=== PATIENT | male | born 1955 | race Caucasian/White ===

== ENCOUNTER 2020-10-02 08:00 | Outpatient (CLI) | payer MEDICAID ==
--- NOTE | 2020-10-02 09:52 | XRAY Report ---
PROCEDURE: Hips 3-4V BILAT INDICATIONS: BILATERAL HIP ARTHRITIS TECHNIQUE: AP pelvis and one view of each hip was obtained. COMPARISON: None FINDINGS: Bones: No fractures or dislocations. No suspicious bony lesions. The visualized pelvic ring appear s intact. Mild bilateral hip joint space narrowing and periarticular osteophyte formation. Right gre ater than left femoral head/neck junction buttressing. Soft tissues: No suspicious soft tissue calcifications or masses. IMPRESSION: 1. Bilateral hip osteoarthritis. 2. Findings suggestive of femoral acetabular impingement. Further assessment with MRI is recommended. Reviewed by: Zackery Xiong MD on 10/02/2020 9:51 AM PDT Approved by: Zackery Xiong MD on 10/02/2020 9:51 AM PDT Station ID: [id number]
== END 2020-10-02 23:59 | disposition home or self-care (01) ==
LOC: DI.N 08:00
PROVIDERS: ATTEND Physician Assistant Medical
DX: M16.0 Bilateral primary osteoarthritis of hip (principal); R93.6 Abnormal findings on diagnostic imaging of limbs

== ENCOUNTER 2021-04-22 14:06 | Outpatient (CLI) | payer MEDICAID | END 2021-04-22 14:07 | disposition home or self-care (01) | LOC: DI.WOS 14:06 | PROVIDERS: ATTEND Physician Assistant | DX: M16.11 Unilateral primary osteoarthritis, right hip (principal) ==

== ENCOUNTER 2021-04-22 15:48 | Outpatient (CLI) | payer MEDICAID ==
--- NOTE | 2021-04-22 17:20 | XRAY Report ---
PROCEDURE: Hip w/Pelvis 1V RT INDICATIONS: RIGHT HIP PAIN TECHNIQUE: AP pelvis with lateral view(s) of the right hip(s). COMPARISON: None. FINDINGS: Bones: No fractures or dislocations. Asymmetric right hip joint osteoarthritic changes are seen with superior joint space narrowing and subchondral sclerosis. No evidence of avascular necrosis of femor al head. Pelvic ring appears intact. No suspicious bony lesions. Soft tissues: The visualized bowel gas pattern is normal. No suspicious soft tissue calcifications. IMPRESSION: Asymmetric moderate right hip joint osteophyte is. No fracture or dislocation. No evidenc e of avascular necrosis. Reviewed by: Juan José Tang MD on 04/22/2021 5:19 PM PST Approved by: Juan José Tang MD on 04/22/2021 5:19 PM PST Station ID: [id number]
== END 2021-04-22 15:49 | disposition home or self-care (01) ==
LOC: DI.N 15:48
PROVIDERS: ATTEND Physician Assistant
DX: M16.11 Unilateral primary osteoarthritis, right hip (principal)

== ENCOUNTER 2021-05-01 12:42 | Outpatient (CLI) | payer MEDICAID ==
[2021-05-01 17:13] LABS: BASOPHILS # (AUTO) 0.1 10^3/uL (0.0-0.1); BASOPHILS % (AUTO) 0.8 %; EOSINOPHILS # (AUTO) 0.4 10^3/uL (0.0-0.7); EOSINOPHILS % (AUTO) 7.1 %; HCT - HEMATOCRIT 45.8 % (42.0-52.0); HGB - HEMOGLOBIN 15.2 g/dL (14.0-18.0); LYMPHOCYTES # (AUTO) 1.1 10^3/uL (1.5-3.5); LYMPHOCYTES % (AUTO) 18.9 %; MEAN CORPUSCULAR HGB CONC 33.2 g/dL (32.0-36.0); MEAN CORPUSCULAR VOLUME 96.4 fL (80.0-94.0); MONOCYTES # (AUTO) 0.7 10^3/uL (0.0-1.0); MONOCYTES % (AUTO) 11.6 %; NEUTROPHILS # (AUTO) 3.7 10^3/uL (1.5-6.6); NEUTROPHILS % (AUTO) 61.1 %; RED BLOOD COUNT 4.75 10^6/uL (4.70-6.10); RED CELL DISTRIBUTION WIDTH 12.7 % (12.0-15.0)
[2021-05-01 17:25] LABS: ALBUMIN 3.8 g/dL (3.2-5.5); ALBUMIN/GLOBULIN RATIO 1.1 (1.0-2.2); ALKALINE PHOSPHATASE 76 IU/L (42-121); ALT ALANINE AMINOTRANSFERASE 29 IU/L (10-60); AST ASPARTATE AMINOTRANSFERASE 36 IU/L (10-42); BILIRUBIN,TOTAL 0.9 mg/dL (0.2-1.0); BUN - BLOOD UREA NITROGEN 11 mg/dL (6-20); CALCIUM 9.6 mg/dL (8.5-10.3); CARBON DIOXIDE - CO2 25 mmol/L (21-32); CHLORIDE 99 mmol/L (101-111); CHOLESTEROL 207 mg/dL; CREATININE 0.8 mg/dL (0.6-1.2); GFR - MDRD 98 (>89); GLUCOSE 90 mg/dL (70-100); HDL CHOLESTEROL 69 mg/dL; LDL CHOLESTEROL,CALCULATED 118 mg/dL; LDL/HDL RATIO 1.7 (<3.6); POTASSIUM 4.4 mmol/L (3.5-5.0); SODIUM 139 mmol/L (135-145); TOTAL PROTEIN 7.4 g/dL (6.7-8.2); TRIGLYCERIDES 102 mg/dL; VLDL CHOLESTEROL 20 mg/dL
[2021-05-01 17:38] LABS: THYROID STIMULATING HORMONE 1.57 uIU/mL (0.34-5.60)
[2021-05-01 17:54] LABS: PLATELET ESTIMATE, MANUAL NORMAL (130-450,000) (NORMAL); SLIDE REVIEW? Indicated
[2021-05-01 17:55] LABS: RBC MORPHOLOGY (MULTIPLE) NORMAL APPEARANCE (NORMAL)
[2021-05-03 18:01] LABS: HEPATITIS C ANTIBODY NON-REACTIVE (NON-REACTIVE)
== END 2021-05-01 12:43 | disposition home or self-care (01) ==
LOC: LAB.N 12:42
PROVIDERS: ATTEND Registered Nurse
DX: Z00.00 Encounter for general adult medical examination without abnormal findings (principal); Z13.228 Encounter for screening for other metabolic disorders; Z13.220 Encounter for screening for lipoid disorders; Z12.5 Encounter for screening for malignant neoplasm of prostate; Z13.29 Encounter for screening for other suspected endocrine disorder; Z13.0 Encounter for screening for diseases of the blood and blood-forming organs and certain disorders involving the immune mechanism; R97.20 Elevated prostate specific antigen [PSA]
CPT/HCPCS: 36415; 80053; 80061; 83721; 84153; 84443; 85025; 86803; 87389

== ENCOUNTER 2021-05-03 10:41 | Outpatient (CLI) | payer MEDICAID ==
[2021-05-03 18:28] LABS: PSA FREE 1.156 ng/mL (0.16-2.81)
[2021-05-03 18:29] LABS: PSA TOTAL 9.916 ng/mL (0.000-2.000)
[2021-05-04 14:32] LABS: HIV AG/AB 4TH GEN NON-REACTIVE (NON-REACTIVE)
== END 2021-05-03 10:42 | disposition home or self-care (01) ==
LOC: LAB.N 10:41
PROVIDERS: ATTEND Registered Nurse
DX: Z00.00 Encounter for general adult medical examination without abnormal findings (principal); R97.20 Elevated prostate specific antigen [PSA]
CPT/HCPCS: 36415; 84153; 84154; 87389

== ENCOUNTER 2021-05-06 09:20 | Outpatient (CLI) | payer MEDICAID ==
[2021-05-06 10:19] VITALS: BP 153/105
--- NOTE | 2021-05-06 10:19 | SLEEP CARE CONSULTATION ---
Information from patient questionnaire entered by Elizabeth Caro MA. I have reviewed and concur with the information entered by Elizabeth Caro MA. This document represents the service I personally performed and the decisions made by me, Tamanna Fisher ARNP. History of Present Illness Service Date and Time: 05/06/2021 0920 Reason for Visit: New patient Chief Complaint: reports: Insomnia, Snoring, Observed pauses in breathing, Frequent awakenings at night Date of Onset: 20 YEARS, snoring Usual bedtime: 10:00 PM, BUT VARIES Time it takes to fall asleep: 1-2 HOURS TO tv Snores at night: Yes Observed to quit breathing while asleep: Yes Sleeps alone due to snoring: Yes (did when he was ) Number of times waking at night: 1-2 Reasons for waking at night: reports: Bathroom, Other (unknown reason) Toss, Turn, or Twitch while sleeping: Yes Recalls having dreams: Yes Usually gets out of bed at: 0700 - 0800 Feels refreshed in the morning: Yes Morning headache: No Sleepy or fatigued during the day: No Ever fallen asleep while driving: No Takes day naps: No Dreams during day naps: No Prior sleep studies: No Additional HPI information: I had the pleasure of seeing LILIA GARDNER today regarding the possibility of him having a sleep disorder. His current complaints are snoring, insomnia, frequent night awakenings and observed pauses in breathing. He states he has always been a loud snorer. He was so bad that when he was his would sleep in different room. He states he has been told that he will have pauses in his snoring and then make gasping sounds and start snoring again. He has gained weight since moving to the [place] about 1.5 years ago to take care of his parents. He is retired and is sedentary. He will lay down in bed about 10 PM and watch TV until he falls asleep. He will wake up for unknown reasons and to use the bathroom. He states if he wakes up near 4 AM he is unable to go back to sleep and will just get up. He states he normally feels rested in the morning after getting up. He does not get sleepy during the day and does not take naps. He denies any drowsy driving. - Parasomnia Symptoms Ever been unable to move upon waking from sleep: No Walks in sleep: No Talks in sleep: No Ever acted out dreams in sleep: No Ever felt weak in the knees when startled or emotional: No Bothered by creepy, crawly, restless sensations in legs: No Problems with memory or concentration: No Subjective Initial [place] Sleepiness Scale score: 3 (2021) Past Medical History Past Medical History: reports: Hypertension, Arthritis (hips) Social History The patient's occupation is a RE. Patient is and lives in . Have you smoked in the past 12 months: No Alcohol use: Yes Alcohol amount and frequency: 2-3 X DAILY Caffeine use: Yes Caffeine amount and frequency: 1-2 X DAILY Family History Family history of sleep disordered breathing: Yes Family Hx Sleep Apnea: Mother: Snoring, Father: Snoring, Sibling: Snoring, Grandparent: Snoring, Other: Snoring Allergies and Home Medications Known drug allergies: No Drug allergies reviewed: Yes Home medication list reviewed: Yes Allergy and home medication list: Losartan Fiber pills MVT, occasionally Review of Systems Weight gain over past 5 years: 40 Weight loss over past 5 years: 20 Cardiovascular: reports: high blood pressure Respiratory: reports: shortness of breath Urinary: reports: urgency Neurological: denies: headaches Psychiatric: denies: anxiety, depression, mood disorder Ear/Nose/Throat: denies: sinus problems, tonsillectomy, wisdom teeth removed Endocrine: denies: thyroid disease Musculoskeletal: reports: joint pain, back pain, mobility problems Physical Exam Vital signs obtained and entered by: LESLEY JUAREZ Blood Pressure: 153/105 (RIGHT, [id number], RESP. 20,) Heart Rate: 101 O2 Saturation: 97 (WITH PAPER MASK) Height: 5 ft 9 in Weight: 260 lb (WITH CLOTHES) Body Mass Index: 38.4 BMI Classification: Obese Neck circumference: 16.75 (inches) Mouth and throat: narrow oropharynx Soft palate: long Hard palate: normal Uvula: normal Uvula visualization: 50% Mallampati Class II Tongue: enlarged in size with teeth tapia on lateral edges Tonsils: small Heart: regular rate and rhythm Lungs: clear bilaterally Impression and Plan 1. Suspected Obstructive Sleep Apnea-Hypopnea Syndrome, as suggested by a history of loud and irregular snoring, observed cessation of breath while asleep, gasping or choking in sleep, and frequent awakening during the night. Narrow oropharynx and obesity are common predisposing factors for obstructive sleep apnea-hypopnea syndrome. I recommend proceeding to polysomnography to confirm the diagnosis and to assess severity. If the patient has significant sleep disordered breathing, a manual CPAP titration study will also be performed to find the optimal treatment pressure. I informed the patient of what the sleep studies involve and after some discussion, obtained agreement to proceed. The pathophysiology of obstructive sleep apnea-hypopnea syndrome was discussed with the patient and health risks of cardiovascular and cerebrovascular disease if not treated. Risks of drowsy driving discussed in detail and patient advised to avoid long distance driving and to chute puller at the first sign of drowsiness. Patient agreed to plan. * Schedule polysomnography +- manual CPAP titration study and return in 1-2 weeks after the study to discuss result and initiate therapy. * Avoid long distance driving or driving when feeling sleepy. * Avoid alcohol, sedative and muscle relaxant around bedtime. * Attempt to lose weight. * Review instructions provided by trained office staff on how to prepare for the sleep study. * Return for follow-up after sleep study completed. Counseling Topics: Weight loss health impact Visit Type: In Office Time Spent with Patient (minutes): 37 Provider Statement: I spent 100% of the Face to Face Visit with the patient with greater than 50% spent counseling the patient and coordination of care.
== END 2021-05-06 09:21 | disposition home or self-care (01) ==
LOC: SC 09:20
PROVIDERS: ATTEND Nurse Practitioner Family
DX: R06.83 Snoring (principal); R06.81 Apnea, not elsewhere classified; G47.8 Other sleep disorders; I10 Essential (primary) hypertension; E66.9 Obesity, unspecified; Z68.38 Body mass index [BMI] 38.0-38.9, adult
CPT/HCPCS: 99203; 99212

== ENCOUNTER 2021-05-13 08:25 | Outpatient (CLI) | payer MEDICAID | END 2021-05-13 08:26 | disposition home or self-care (01) | LOC: SC 08:25 | PROVIDERS: ATTEND Nurse Practitioner Family | DX: G47.33 Obstructive sleep apnea (adult) (pediatric) (principal); R09.02 Hypoxemia; R00.0 Tachycardia, unspecified | CPT/HCPCS: 95806 ==

== ENCOUNTER 2021-06-09 08:51 | Outpatient (CLI) | payer MEDICAID ==
[2021-06-09 09:51] VITALS: BP 137/75
--- NOTE | 2021-06-09 09:51 | SLEEP CARE CONSULTATION ---
Information from patient questionnaire entered by Elizabeth Caro MA. I have reviewed and concur with the information entered by Elizabeth Caro MA. This document represents the service I personally performed and the decisions made by , Tamanna Fisher ARNP. History of Present Illness Service Date and Time: 06/09/2021 0851 Initial [place] Sleepiness Scale score: 3 (2021) Current [place] Sleepiness Scale score: 5 (05/2021) Additional HPI information: LILIA GARDNER returns for follow up and results of the recently performed home sleep study. I explained the pathophysiology behind obstructive sleep apnea. We then spent quite a bit of time discussing different treatment options. For mild obstructive sleep apnea, surgery and oral appliance are alternatives to nasal CPAP therapy but in moderate or severe cases, nasal CPAP is the most effective and reliable treatment. Because apnea is primarily in supine position, then positional management therapy could be effective. Methods discussed such as positioning with pillows, using a T-shirt with tennis balls in the back, and shown commercial products that have a pillow format on back to prevent supine sleep. I reviewed the impact of weight changes on sleep apnea and strongly recommended losing weight. After some discussion, the patient opted to go with the nasal CPAP therapy. Nasal autoCPAP set at 4-15 cmH20 will be ordered with rationale explained. A manual titration study will be ordered if unable to find optimal pressure with office adjustments. I explained how CPAP machine works and what to expect when using the machine. Using CPAP every night in order to get used to it was emphasized. Patient advised to put CPAP mask on before getting into bed so as not to fall asleep without CPAP. To assist acclimation to CPAP use, it could also be used for a short time during day while reading or watching TV. The patient was instructed to call the CPAP supplier to discuss any mechanical problem that may occur. If the mask given is uncomfortable or is difficult to keep on through the night even with adjustment, contact the CPAP supplier as many will replace with another mask style if notified before 30 days. If snoring or perceives is not getting enough air or too much air from the machine, notify this office. [facility] patient education PAP tips reviewed and given to patient. Patient counseled not drink alcohol less than 4 hours before bedtime as it can increase snoring and apnea. Patient was cautioned about risks of drowsy driving until sleepiness symptoms resolve. Patient denies drowsy driving. Sleep Study - Results Type of Sleep Study: Home sleep study (F/U HOME STUDY) Prior sleep studies: No Polysomnography/Home Sleep Study results: Physician Impression: The quality of the study is good. The length of the study is adequate (> 240 minutes). Please also see the tabulated and graphic data. 1. Obstructive Sleep Apnea-Hypopnea (ICD-10 G47.33), severe, with an AHI of 47.9/hr and bernardo SaO2 of 71%. During the study, the patient had 192 apneas (192 obstructive, 0 central, 0 mixed) and 107 hypopneas. The longest episode lasted 172.5 seconds. The patient did not sleep supine during this study. 2. Hypoxemia (ICD-10 R09.02), moderate, with the lowest oxygen saturation of 71 % and 51.4 minutes with SaO2 under 90%. Baseline oxygen saturation was normal (Average oxygen saturation was 92%). 3. Tachycardia, with maximum recorded heart rate of 121 beats per minute. Allergies and Home Medications Home medication list reviewed: Yes (no changes) Review of Systems Review of systems same as previous: Yes (no changes) Physical Exam Vital signs obtained and entered by: ZULMA JUAREZ Blood Pressure: 137/75 (PULSE 111, RESP 18, RIGHT) Cuff size: wrist Heart Rate: 110 O2 Saturation: 96 (PAPER MASK ) Height: 5 ft 9 in Weight: 255 lb (W/O CLOTHES) Body Mass Index: 37.6 BMI Classification: Obese Impression and Plan 1. Obstructive Sleep Apnea-Hypopnea Syndrome, severe, with lowest oxygen saturation of 71%. Obviously this is the cause of the patients symptoms of unrefreshed sleep, and excessive daytime sleepiness. Positive pressure therapy could benefit hypertension. As mentioned above, the patient will be started on nasal autoCPAP therapy with pressure set at 4-15 cmH2O. A manual titration study will be completed if unable to find optimal treatment pressure with office adjustments. Compliance guidelines also reviewed. A copy of compliance guidelines will be given for reference at check out. 2. Hypoxemia, moderate, with the lowest oxygen saturation of 71 % and 51.4 minutes with SaO2 under 90% His baseline oxygen saturation was normal with an average oxygen saturation of 92%. 3. Tachycardia, with maximum recorded heart rate of 121 beats per minute. An elevated heart rate can be secondary to the sleep apnea but may indicate other health issues. Patient was advised to follow up with his PCP for elevated heart rate. * Nasal auto CPAP therapy, pressure at 4-15 cm H2O. * Attempt to lose weight. * Avoid alcohol consumption near bedtime. * Avoid supine sleep until using CPAP. * The patient is again cautioned about driving until sleepiness completely resolves. * Return one month after CPAP obtained. I will assess response to therapy and compliance at that time. Counseling Topics: Weight loss health impact Visit Type: In Office Time Spent with Patient (minutes): 29 Provider Statement: I spent 100% of the Face to Face Visit with the patient with greater than 50% spent counseling the patient and coordination of care.
== END 2021-06-09 08:52 | disposition home or self-care (01) ==
LOC: SC 08:51
PROVIDERS: ATTEND Nurse Practitioner Family
DX: G47.33 Obstructive sleep apnea (adult) (pediatric) (principal); R09.02 Hypoxemia; R00.2 Palpitations; E66.9 Obesity, unspecified; Z68.37 Body mass index [BMI] 37.0-37.9, adult
CPT/HCPCS: 99212; 99213

== ENCOUNTER 2021-06-09 09:18 | Outpatient (CLI) | payer MEDICAID ==
[2021-06-09 13:17] LABS: BILIRUBIN,URINE NEGATIVE (NEGATIVE); GLUCOSE, URINE (UA) NEGATIVE (NEGATIVE); KETONES,URINE (UA) TRACE mg/dL (NEGATIVE); LEUKOCYTE ESTERASE, URINE NEGATIVE (NEGATIVE); NITRITE,URINE NEGATIVE (NEGATIVE); OCCULT BLOOD,URINE MODERATE (NEGATIVE); PH,URINE 5.5 PH (5.0-7.5); PROTEIN,URINE NEGATIVE (NEGATIVE); UROBILINOGEN,URINE 0.2 (NORMAL) E.U./dL (NORMAL)
[2021-06-09 13:28] LABS: CLARITY,URINE CLEAR (CLEAR)
[2021-06-09 13:28] LABS: PSA FREE 0.33 ng/mL (0.16-2.81)
[2021-06-09 13:30] LABS: PSA TOTAL 4.89 ng/mL (0.000-2.000)
[2021-06-09 13:42] LABS: BACTERIA,URINE Few /HPF (None Seen); RBC,URINE 0-5 /HPF (0-5); SQUAMOUS EPITHELIAL CELL,UR FEW Squamous (<= Few); WBC,URINE 0-3 /HPF (0-3)
== END 2021-06-09 09:19 | disposition home or self-care (01) ==
LOC: LAB.N 09:18
PROVIDERS: ATTEND Physician Assistant
DX: R97.20 Elevated prostate specific antigen [PSA] (principal); R31.21 Asymptomatic microscopic hematuria
CPT/HCPCS: 36415; 81001; 81003; 84153; 84154; 87086

== ENCOUNTER 2021-07-30 13:45 | Outpatient (CLI) | payer MEDICAID ==
[2021-07-30] MEDS ORDERED: IOPAMIDOL-300 100 ML VIAL ONE (13:59)
[2021-07-30 14:26] LABS: CREATININE 0.8 mg/dL (0.6-1.2)
[2021-07-30] MEDS ORDERED: IOPAMIDOL-300 100 ML VIAL IVP ONE (14:48)
--- NOTE | 2021-07-30 15:26 | CT Report ---
PROCEDURE: IVP INDICATIONS: HEMATURIA CONTRAST: IV CONTRAST: Isovue 300 ml: 140 PO CONTRAST: *NO PO CONTRAST TECHNIQUE: After the administration of oral and intravenous contrast, 5 mm thick sections acquired from the diap hragms to the symphysis. 5 mm thick coronal and sagittal reformats were acquired. For radiation dos e reduction, the following was used: automated exposure control, adjustment of mA and/or kV accordin g to patient size. COMPARISON: None. FINDINGS: Inferior chest: Bibasal atelectasis. No cardiomegaly or pericardial effusion. Gallbladder: The gallbladder is distended with a smooth thin wall. Biliary tree: No intra-or extrahepatic biliary ductal dilatation. Liver: Normal contour. Hepatic steatosis. Spleen: Normal enhancement, size and morphology is seen. Pancreas: No contour deforming mass or inflammatory change. Adrenals: Normal size without masses. Kidneys/ureters: Mild right hydronephrosis and perinephric stranding with dilatation of the ureter th roughout its course. However, no appreciable nephrolithiasis. Nonspecific left perinephric stranding. No left hydronephrosis or nephrolithiasis. Vasculature: No evidence of aneurysm or other significant vascular pathology. Lymphatic system: No pathologic enlargement by size criteria. GI/mesentery: No evidence of intestinal obstruction. Extensive colonic diverticulosis. A small focus of inflammatory changes seen adjacent to the sigmoid colon (4-57), which may reflect omental infarcti on. Normal appearance of the appendix. Peritoneum/Retroperitoneum: No free intraperitoneal gas or large collection. Urinary bladder: The urinary bladder is distended with a smooth thin wall. Pelvic organs: No significant abnormality. The prostate measures 4.2 cm in transverse dimension. A pe nile prosthesis is noted. Bones/soft tissues: Multifocal degenerative change with vacuum phenomenon the lumbar spine. Remote ri ght rib fractures. Trace fat-containing periumbilical hernia. IMPRESSION: 1.Mild right hydronephrosis and perinephric stranding with dilatation of the ureter, suggesting recen t calculus passage. Reviewed by: Ismael Flores MD on 07/30/2021 3:24 PM PDT Approved by: Ismael Flores MD on 07/30/2021 3:24 PM PDT Station ID: [id number]
[2021-07-30 15:55] LABS: PSA FREE 0.43 ng/mL (0.16-2.81)
[2021-07-30 15:56] LABS: PSA TOTAL 4.6 ng/mL (0.000-2.000)
== END 2021-07-30 13:46 | disposition home or self-care (01) ==
LOC: DI 13:45
PROVIDERS: ATTEND Physician Assistant
DX: N13.30 Unspecified hydronephrosis (principal); R31.21 Asymptomatic microscopic hematuria; R97.20 Elevated prostate specific antigen [PSA]
CPT/HCPCS: 36415; 74178; 82565; 84153; 84154; 84520; Q9967

== ENCOUNTER 2021-09-08 08:01 | Outpatient (CLI) | payer MEDICAID ==
--- NOTE | 2021-09-08 17:19 | Ultrasound Report ---
PROCEDURE: Retroperitoneal INDICATIONS: ASYMPTOMATIC MICROSCOPIC HEMATURIA TECHNIQUE: Real-time scanning was performed of the retroperitoneal organs, with image documentation. COMPARISON: None. FINDINGS: Kidneys: Kidneys are normal in size. Right kidney measures 11.9 cm long; left kidney measures 11.6 cm long. Right renal cortical thickness is 1.2 cm; left renal cortical thickness is 1.2 cm. No karon d masses, hydronephrosis, or nephrolithiasis. Bladder: Pre-void bladder volume is 128 mL. Post-void residual is 46 mL. Pre-void images demonstra te no intraluminal masses or stones. On pre-void images, bilateral ureteral jets are noted with colo r Doppler interrogation. (Of note, ureteral jets may not be detectable in up to 25% of cases due to insufficient differences in specific gravity between ureteral and bladder urine). Incidental 4.9 x 4 .6 cm right-sided penile implant reservoir Miscellaneous: No free abdominal fluid. IMPRESSION: Unremarkable ultrasound of both kidneys. No shadowing calculi or hydronephrosis Reviewed by: Edgar Brandt MD on 09/08/2021 4:17 PM AKDT Approved by: Edgar Brandt MD on 09/08/2021 4:17 PM AKDT Station ID: [id number]
== END 2021-09-08 08:02 | disposition home or self-care (01) ==
LOC: DI 08:01
PROVIDERS: ATTEND Physician Assistant
DX: R31.21 Asymptomatic microscopic hematuria (principal); N13.30 Unspecified hydronephrosis

== ENCOUNTER 2021-10-15 09:16 | Outpatient (CLI) | payer MEDICAID ==
--- NOTE | 2021-10-15 09:10 | SLEEP CARE CONSULTATION ---
Information from patient questionnaire entered by Elizabeth Caro MA. I have reviewed and concur with the information entered by Elizabeth Caro MA. This document represents the service I personally performed and the decisions made by , Tamanna Fisher ARNP. History of Present Illness Service Date and Time: 10/15/2021 0840 Previous diagnosis: Severe, Obstructive Sleep Apnea-Hypopnea Syndrome AHI: 47.9 (in 2021) Reason for follow up: first compliance Equipment type: CPAP Equipment obtained from: [facility] (got initial supplies) Mask style: Full face Backup mask available: No (will keep old mask when replaced) Last cushion change: 1 month Prior sleep studies: No HPI additional information: LILIA GARDNER was diagnosed to have severe, AHI 47.9, obstructive sleep apnea- hypopnea syndrome and returns via video telehealth visit today for CPAP therapy first compliance follow-up. Sleep Study - Results Prior sleep studies: No CPAP Compliance Data - Data Reviewed with Patient Average duration of nightly device use: 5 HOURS 33 MINUTES Compliance rate %: 73 (06/15/21-; inital compliance period) Current pressure setting (cmH2O): 4-15 (median 5.8, avg 9.2, max 10.4) Average residual AHI: 0.6 Central apnea: .1 Obstructive apnea: .1 Hypopnea: .3 Average large leak: .3 Subjective Missed days of use due to: reports: other (taking care of elderly parents, forgetting to put mask on before falling asleep) Patient concerns: denies: aerophagia, mask discomfort, air blowing in eyes, mask leak noise, condensation in mask/hose, nasal congestion, dry mouth, nose, throat, epistaxis, other Observed to snore while using device: No Current pressure setting perceived as: comfortable On therapy, patient: reports: sleeping better, awakening more refreshed, being more awake and alert during the day, more rested overall. denies: drowsiness while driving Initial [place] Sleepiness Scale score: 3 (2021) Current [place] Sleepiness Scale score: 2 Allergies and Home Medications Home medication list reviewed: Yes (no changes) Review of Systems Review of systems same as previous: Yes (no changes) Physical Exam Vital signs obtained and entered by: Anthony CARO CMA AAMA, PRE TELEMED APPT. Height: 5 ft 9 in Weight: 250 lb (pt reported) Body Mass Index: 36.9 BMI Classification: Obese Impression and Plan 1. Obstructive Sleep Apnea-Hypopnea Syndrome, severe, with good treatment compliance and excellent apnea control during initial use of CPAP. His compliance has come down to fair (51%) in last 120 days. He has been taking care of his elderly parents and will come home tired and fall asleep without the mask on some nights. On CPAP therapy, the patient has better sleep quality and is m ore rested overall. The patients pressure will be changed to autoCPAP 6-10 cmH20 to reflect pressures being used. Patient advised to contact me if pressure change is uncomfortable so that it can be adjusted. Goals for apnea control discussed. To prevent falling asleep without CPAP, patient advised to set a bedtime alarm on their phone for use while watching TV on couch or in bed. He voiced understanding and agreement for plan. Patient's apnea severity and rationale for treatment to reduce apnea, improve sleep quality and reduce cardiovascular and cerebrovascular events was reviewed. I also reviewed the benefit of consistent device use of CPAP for hypertension. * Change auto CPAP pressure to 6-10 cmH2O * Notify me if snoring with mask or feeling that the pressure is too much or too little * Call this office if any problems using CPAP * Return for follow up in 1-2 months, or sooner if concerns arise Counseling Topics: Spare mask Visit Type: Telehealth Video ([phone]) Video Type: Doximity Patient Location: Home Location of Provider: Office Patient agrees and consents to this telehealth visit type: Yes Patient agrees to have their insurance billed: Yes Time Spent with Patient (minutes): 20 Provider Statement: I spent 100% of the Telehealth Video Call with the patient with greater than 50% spent counseling the patient and coordination of care.
== END 2021-10-15 09:17 | disposition home or self-care (01) ==
LOC: SC 09:16
PROVIDERS: ATTEND Nurse Practitioner Family
DX: G47.33 Obstructive sleep apnea (adult) (pediatric) (principal); E66.9 Obesity, unspecified; Z68.36 Body mass index [BMI] 36.0-36.9, adult

== ENCOUNTER 2021-12-15 09:13 | Outpatient (CLI) | payer MEDICAID ==
--- NOTE | 2021-12-15 09:10 | SLEEP CARE CONSULTATION ---
Information from patient questionnaire entered by Brooke Alcazar. I have reviewed and concur with the information entered by Brooke Alcazar. This document represents the service I personally performed and the decisions made by , Tamanna Fisher ARNP. History of Present Illness Service Date and Time: 12/15/2021 0840 Previous diagnosis: Severe, Obstructive Sleep Apnea-Hypopnea Syndrome AHI: 47.9 (in 2021) Reason for follow up: other (2 MONTH F/U PRESSURE CHANGE ) Equipment type: CPAP (RESMED) Equipment obtained from: [facility] (got initial supplies) Mask style: Full face Backup mask available: No (will keep old mask when replaced) Last cushion change: recently Prior sleep studies: No HPI additional information: LILIA GARDNER was diagnosed to have severe, AHI 47.9, obstructive sleep apnea- hypopnea syndrome and return via video telehealth visit today for CPAP therapy two month with pressure change follow-up. Sleep Study - Results Prior sleep studies: No CPAP Compliance Data - Data Reviewed with Patient Average duration of nightly device use: 5 hours, 18 minutes Compliance rate %: 33 (10/15/21 to 12/13/21; 31/60 days used) Current pressure setting (cmH2O): 6-10 Average residual AHI: 1.9 Average large leak: 0.0 Subjective Missed days of use due to: reports: other (fall asleep before he puts on the mask) Patient concerns: reports: mask leak noise. denies: aerophagia, mask discomfort, air blowing in eyes, condensation in mask/hose, nasal congestion, dry mouth, nose, throat, epistaxis Observed to snore while using device: No Current pressure setting perceived as: too high On therapy, patient: reports: sleeping better, more rested overall. denies: drowsiness while driving Initial [place] Sleepiness Scale score: 3 (2021) Current [place] Sleepiness Scale score: 1 (12/15/21) Allergies and Home Medications Home medication list reviewed: Yes (no changes) Review of Systems Review of systems same as previous: Yes (no changes) Physical Exam Vital signs obtained and entered by: VIA PHONE Height: 5 ft 9 in Weight: 250 lb (pt reported) Body Mass Index: 36.9 BMI Classification: Obese Impression and Plan 1. Obstructive Sleep Apnea-Hypopnea Syndrome, severe, with poor treatment compliance and good apnea control. On CPAP therapy, the patient has better sleep quality and is more rested overall. Patient feels as if the pressure is too high since we changed it. He states the air is pushing the mask and then causing it to leak and wake him up. I will adjust the pressure back to the 4-15 cmH2O for patient comfort and to reduce mask leaking. Patient states he will fall asleep without the mask on because he watches TV until he is ready to go to sleep. He is working on getting to the point where he can put the mask on and go to sleep when he is tired enough and he has also used an alarm to wake him up to get him to put the mask on to go to sleep. It is still a work in progress that he thinks he is getting figured out. I encouraged him to continue to do so. Compliance guidelines reviewed for insurance coverage. Patient was counseled on the difference between meeting compliance and optimal use of CPAP. Optimal use of CPAP is use of CPAP with all sleep to obtain maximum benefit of treatment. Patient is encouraged to use CPAP with all sleep. Patient's apnea severity and rationale for treatment to reduce apnea, improve sleep quality and reduce cardiovascular and cerebrovascular events was reviewed. I also reviewed the benefit of consistent device use of CPAP for hypertension. I will follow-up with him in about 3 months. * Change auto CPAP pressure to 4-15 cmH2O * Notify me if snoring with mask or feeling that the pressure is too much or too little * Call this office if any problems using CPAP * Return for follow up in 3 months, or sooner if concerns arise Counseling Topics: Spare mask, Weight loss health impact Visit Type: Telehealth Video ([phone]) Video Type: Doximity Patient Location: Home Location of Provider: Office Patient agrees and consents to this telehealth visit type: Yes Patient agrees to have their insurance billed: Yes Time Spent with Patient (minutes): 26 Provider Statement: I spent 100% of the Telehealth Video Call with the patient with greater than 50% spent counseling the patient and coordination of care.
== END 2021-12-15 09:14 | disposition home or self-care (01) ==
LOC: SC 09:13
PROVIDERS: ATTEND Nurse Practitioner Family
DX: G47.33 Obstructive sleep apnea (adult) (pediatric) (principal); E66.9 Obesity, unspecified; Z68.36 Body mass index [BMI] 36.0-36.9, adult

== ENCOUNTER 2022-01-11 08:00 | Outpatient (CLI) | payer MEDICAID ==
--- NOTE | 2022-01-11 15:33 | XRAY Report ---
PROCEDURE: Hip 2 View RT INDICATIONS: RIGHT HIP PAIN TECHNIQUE: 2 views of the right hip were acquired. COMPARISON: 10/02/2020 and 04/22/2021 FINDINGS: Bones: No fractures or dislocations. No suspicious bony lesions. The visualized pelvic ring appear s intact. Moderate right and mild left hip osteoarthritis. Soft tissues: No suspicious soft tissue calcifications or masses. IMPRESSION: Moderate right hip osteoarthritis. Reviewed by: Jesi Antony MD, PhD on 01/11/2022 3:32 PM PDT Approved by: Jesi Antony MD, PhD on 01/11/2022 3:32 PM PDT Station ID: [id number]
== END 2022-01-11 23:59 | disposition home or self-care (01) ==
LOC: DI.WOS 08:00
PROVIDERS: ATTEND Orthopaedic Surgery
DX: M16.11 Unilateral primary osteoarthritis, right hip (principal)

== ENCOUNTER 2022-06-14 08:19 | Outpatient (CLI) | payer MEDICAID ==
--- NOTE | 2022-06-14 09:10 | SLEEP CARE CONSULTATION ---
Information from patient questionnaire entered by Terese Perez. I have reviewed and concur with the information entered by Terese Perez. This document represents the service I personally performed and the decisions made by me, Tamanna Fisher ARNP. History of Present Illness Service Date and Time: 06/14/2022 0819 Previous diagnosis: Severe, Obstructive Sleep Apnea-Hypopnea Syndrome AHI: 47.9 (in 2021) Reason for follow up: three month (F/U) Equipment type: CPAP (RESMED Airsense 11, s/u 05/2021) Equipment obtained from: Other ([facility]; getting supplies) Mask style: Full face Backup mask available: No (will keep old mask when replaced) Last cushion change: several months Prior sleep studies: Yes Year and Where: 04/2021 [facility] HPI additional information: LILIA GARDNER was diagnosed to have severe, AHI 47.9, obstructive sleep apnea- hypopnea syndrome and returned today for CPAP therapy three month follow-up. Sleep Study - Results Prior sleep studies: No CPAP Compliance Data - Data Reviewed with Patient Average duration of nightly device use: 5 hours 3 minutes Compliance rate %: 37 (49/90 days) Current pressure setting (cmH2O): 4-15 (median 7.2, avg 10.2, max 11.4) Average residual AHI: 1.0 Central apnea: 0.1 Obstructive apnea: 0.5 Hypopnea: 0.4 Average large leak: 3.0 LPM Subjective Missed days of use due to: reports: other (difficulty using due to mask leak noises waking him up) Patient concerns: reports: mask leak noise. denies: aerophagia, mask discomfort, air blowing in eyes, condensation in mask/hose, nasal congestion, dry mouth, nose, throat, epistaxis Current pressure setting perceived as: too high (when waking up early mornings) On therapy, patient: reports: sleeping better, awakening more refreshed, being more awake and alert during the day, more rested overall. denies: drowsiness while driving Initial [place] Sleepiness Scale score: 3 (2021) Current [place] Sleepiness Scale score: 3 (05/25/22) Allergies and Home Medications Known drug allergies: No Drug allergies reviewed: Yes Home medication list reviewed: Yes (no changes) Review of Systems Review of systems same as previous: Yes (no changes) Physical Exam Vital signs obtained and entered by: TERESE Webb MA Blood Pressure: 150/98 (LEFT ARM) Cuff size: regular Heart Rate: 100 O2 Saturation: 96 Height: 5 ft 9 in Weight: 273 lb 3.2 oz Body Mass Index: 40.3 BMI Classification: Morbidly Obese Impression and Plan 1. Obstructive Sleep Apnea-Hypopnea Syndrome, severe, with fair treatment compliance and good apnea control. On CPAP therapy, the patient has better sleep quality and is more rested overall. 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 The patients pressure will be changed to autoCPAP 7-10 cmH20 for patient comfort and to reflect pressure being used. Patient advised to contact me if pressure change is uncomfortable so that it can be adjusted. Goals for apnea control discussed. He is also using a full face mask that goes over top of nose with hose coming out the front. He feels he cannot move his head because the mask will leak. I advised him to change the mask cushion out regularly since he has not changed the mask in several months. I also showed him a Resmed Airfit F30i with the hose at the top of his head which would reduce pulling on the mask by the hose when he is trying to move in bed. He voiced understanding and agreement with plan.Patient's apnea severity and rationale for treatment to reduce apnea, improve sleep quality and reduce cardiovascular and cerebrovascular events was reviewed. I also reviewed the benefit of consistent device use of CPAP for hypertension. 2. Obesity, unspecified. Currently patients BMI is 40.3. Obesity increases the risk of apnea, CPAP pressure requirements and overall health risks especially cardiovascular and diabetes. Thus patient is advised to lose weight. The patient's CPAP pressure range should accommodate some weight loss. * Mask refitting for Resmed Airfit F30i * Change auto CPAP pressure to 7-10 cmH2O * Notify me if snoring with mask or feeling that the pressure is too much or too little * Attempt to lose weight * Call this office if any problems using CPAP * Return for follow up in 3 months, or sooner if concerns arise Counseling Topics: Spare mask, Weight loss health impact Visit Type: In Office Time Spent with Patient (minutes): 24 Provider Statement: I spent 100% of the Face to Face Visit with the patient with greater than 50% spent counseling the patient and coordination of care.
[2022-06-14 09:11] VITALS: BP 150/98
== END 2022-06-14 08:20 | disposition home or self-care (01) ==
LOC: SC 08:19
PROVIDERS: ATTEND Nurse Practitioner Family
DX: G47.33 Obstructive sleep apnea (adult) (pediatric) (principal); E66.01 Morbid (severe) obesity due to excess calories; Z68.41 Body mass index [BMI] 40.0-44.9, adult
CPT/HCPCS: 36415; 84153; 84154; 99212; 99213

== ENCOUNTER 2022-06-14 09:13 | Outpatient (CLI) | payer MEDICAID ==
[2022-06-14 12:32] LABS: PSA FREE 1.009 ng/mL (0.16-2.81)
[2022-06-14 12:33] LABS: PSA TOTAL 9.106 ng/mL (0.000-2.000)
== END 2022-06-14 09:14 | disposition home or self-care (01) ==
LOC: LAB.N 09:13
PROVIDERS: ATTEND Urology
DX: R97.20 Elevated prostate specific antigen [PSA] (principal)
CPT/HCPCS: 36415; 84153; 84154

== ENCOUNTER 2022-09-09 08:26 | Outpatient (CLI) | payer MEDICAID ==
--- NOTE | 2022-09-09 09:00 | SLEEP CARE CONSULTATION ---
Information from patient questionnaire entered by Terese Perez. I have reviewed and concur with the information entered by Terese Perez. This document represents the service I personally performed and the decisions made by me, Tamanna Fisher ARNP. History of Present Illness Service Date and Time: 09/09/2022825 Previous diagnosis: Severe, Obstructive Sleep Apnea-Hypopnea Syndrome AHI: 47.9 (in 2021) Reason for follow up: three month (F/U) Equipment type: CPAP (RESMED Airsense 11; 05/2021) Equipment obtained from: Other ([facility]; getting supplies) Mask style: Full face Backup mask available: Yes (other mask) Prior sleep studies: No HPI additional information: LILIA GARDNER was diagnosed to have severe, AHI 47.9, obstructive sleep apnea- hypopnea syndrome and returned today for CPAP therapy three month follow-up. Sleep Study - Results Prior sleep studies: No CPAP Compliance Data - Data Reviewed with Patient Average duration of nightly device use: 4 hours 46 minutes Compliance rate %: 22 (32/90 days used ) Current pressure setting (cmH2O): 7-10 Average residual AHI: 0.6 Central apnea: 0 Obstructive apnea: 0.1 Subjective Patient concerns: reports: mask discomfort, mask leak noise, dry mouth, nose, throat. denies: aerophagia, air blowing in eyes, condensation in mask/hose, nasal congestion, epistaxis Observed to snore while using device: No Current pressure setting perceived as: comfortable On therapy, patient: reports: sleeping better, awakening more refreshed. denies: drowsiness while driving Initial [place] Sleepiness Scale score: 3 (2021) Current [place] Sleepiness Scale score: 3 Allergies and Home Medications Known drug allergies: No Drug allergies reviewed: Yes Home medication list reviewed: Yes (no changes) Review of Systems Review of systems same as previous: Yes (no changes) Physical Exam Vital signs obtained and entered by: Tamanna Drew NP Blood Pressure: 141/88 Cuff size: wrist (right) Heart Rate: 99 O2 Saturation: 96 Height: 5 ft 9 in Weight: 273 lb 6.4 oz Body Mass Index: 40.4 BMI Classification: Morbidly Obese Impression and Plan 1. Obstructive Sleep Apnea-Hypopnea Syndrome, severe, with poor treatment compliance and good apnea control. On CPAP therapy, the patient has better sleep quality and is more rested overall. He states he has motivation issues with putting the mask on but he does want to use his CPAP regularly. He did try the different style of mask but he is not sure he gave it a good try. He states he may just order more of his original full face mask to use because he was more compliant with it. Compliance guidelines reviewed for insurance coverage. Patient was counseled on the difference between meeting compliance and optimal use of CPAP. Optimal use of CPAP is use of CPAP with all sleep to obtain maximum benefit of treatment. Patient is encouraged to use CPAP with all sleep. I will have him return in 3 months to recheck compliance. Patient's apnea severity and rationale for treatment to reduce apnea, improve sleep quality and reduce cardiovascular and cerebrovascular events was reviewed. I also reviewed the benefit of consistent device use of CPAP for hypertension. 2. Obesity, unspecified. Currently patients BMI is 40.4. Obesity increases the risk of apnea, CPAP pressure requirements and overall health risks especially cardiovascular and diabetes. Thus patient is advised to lose weight. * Continue auto CPAP pressure at 7-10 cmH2O * Notify me if snoring with mask or feeling that the pressure is too much or too little * Attempt to lose weight * Call this office if any problems using CPAP * Return for follow up in 3 months, or sooner if concerns arise Counseling Topics: Spare mask, Weight loss health impact Visit Type: In Office Time Spent with Patient (minutes): 29 Provider Statement: I spent 100% of the Face to Face Visit with the patient with greater than 50% spent counseling the patient and coordination of care.
[2022-09-09 09:06] VITALS: BP 141/88
== END 2022-09-09 08:27 | disposition home or self-care (01) ==
LOC: SC 08:26
PROVIDERS: ATTEND Nurse Practitioner Family
DX: G47.33 Obstructive sleep apnea (adult) (pediatric) (principal); E66.01 Morbid (severe) obesity due to excess calories; Z68.41 Body mass index [BMI] 40.0-44.9, adult
CPT/HCPCS: 99212; 99213

== ENCOUNTER 2022-12-07 09:07 | Outpatient (CLI) | payer MEDICAID ==
--- NOTE | 2022-12-07 08:53 | SLEEP CARE CONSULTATION ---
Information from patient questionnaire entered by Terese Perez. I have reviewed and concur with the information entered by Terese Perez. This document represents the service I personally performed and the decisions made by , Tamanna Fisher ARNP. History of Present Illness Service Date and Time: 12/07/2022 0840 Previous diagnosis: Severe, Obstructive Sleep Apnea-Hypopnea Syndrome AHI: 47.9 (in 2021) Reason for follow up: three month (F/U) Equipment type: CPAP (RESMED Airsense 11, s/u 05/2021) Equipment obtained from: Other ([facility]; getting supplies) Mask style: Full face Backup mask available: Yes (old mask) Last cushion change: 1 month Prior sleep studies: No Year and Where: 04/2021 [facility] HPI additional information: LILIA GARDNER was diagnosed to have severe, AHI 47.9, obstructive sleep apnea- hypopnea syndrome and returns via video telehealth visit today for CPAP therapy three month follow-up. Sleep Study - Results Prior sleep studies: No Year and Where: 04/2021 [facility] CPAP Compliance Data - Data Reviewed with Patient Average duration of nightly device use: 4 hours 47 minutes Compliance rate %: 21 ( days used) Current pressure setting (cmH2O): 7-10 Average residual AHI: 3 Central apnea: 0.1 Obstructive apnea: 1.5 Hypopnea: 1.3 Average large leak: 0 L/min Subjective Missed days of use due to: reports: other (out of habit of using CPAP) Patient concerns: denies: aerophagia, mask discomfort, air blowing in eyes, mask leak noise, condensation in mask/hose, nasal congestion, dry mouth, nose, throat, epistaxis Observed to snore while using device: No Current pressure setting perceived as: comfortable On therapy, patient: reports: sleeping better, awakening more refreshed, being more awake and alert during the day, more rested overall. denies: drowsiness while driving Initial [place] Sleepiness Scale score: 3 (2021) Current [place] Sleepiness Scale score: 1 Allergies and Home Medications Known drug allergies: No Drug allergies reviewed: Yes Home medication list reviewed: Yes (no changes) Review of Systems Review of systems same as previous: Yes (no changes) Physical Exam Vital signs obtained and entered by: Tamanna Drew NP Height: 5 ft 9 in Weight: 260 lb (per pt) Body Mass Index: 38.4 BMI Classification: Obese Impression and Plan 1. Obstructive Sleep Apnea-Hypopnea Syndrome, severe, with poor treatment compliance and good apnea control. On CPAP therapy, the patient has better sleep quality and is more rested overall. Patient states he really does not notice a difference when using his CPAP but his current "got out of the habit ". He used to use it more consistently but his sleep schedule is very due to being retired and not really keeping to a set schedule. I encouraged him to try to increase his desire to put the mask on more often and use his CPAP more regularly. He agreed to give it a try and we will follow-up with him again in 3 months. Compliance guidelines reviewed for insurance coverage. Patient was counseled on the difference between meeting compliance and optimal use of CPAP. Optimal use of CPAP is use of CPAP with all sleep to obtain maximum benefit of treatment. Patient is encouraged to use CPAP with all sleep. Patient's apnea severity and rationale for treatment to reduce apnea, improve sleep quality and reduce cardiovascular and cerebrovascular events was reviewed. I also reviewed the benefit of consistent device use of CPAP for hypertension. 2. Obesity, unspecified. Currently patients BMI is 38.4. Obesity increases the risk of apnea, CPAP pressure requirements and overall health risks especially cardiovascular and diabetes. Thus patient is advised to lose weight. * Continue auto CPAP pressure at 7-10 cmH2O * Notify me if snoring with mask or feeling that the pressure is too much or too little * Attempt to lose weight * Call this office if any problems using CPAP * Return for follow up in 3 months, or sooner if concerns arise Counseling Topics: Spare mask, Weight loss health impact Visit Type: Telehealth Video Video Type: Doximity Location of Provider: Office Patient agrees and consents to this telehealth visit type: Yes Patient agrees to have their insurance billed: Yes Time Spent with Patient (minutes): 18 Provider Statement: I spent 100% of the Telehealth Video Call with the patient with greater than 50% spent counseling the patient and coordination of care.
== END 2022-12-07 09:08 | disposition home or self-care (01) ==
LOC: SC 09:07
PROVIDERS: ATTEND Nurse Practitioner Family
DX: G47.33 Obstructive sleep apnea (adult) (pediatric) (principal); E66.9 Obesity, unspecified; Z68.38 Body mass index [BMI] 38.0-38.9, adult

== ENCOUNTER 2023-03-08 09:03 | Outpatient (CLI) | payer MEDICAID ==
--- NOTE | 2023-03-08 09:00 | SLEEP CARE CONSULTATION ---
Information from patient questionnaire entered by Terese Perez. I have reviewed and concur with the information entered by Terese Perez. This document represents the service I personally performed and the decisions made by , Tamanna Fisher ARNP. History of Present Illness Service Date and Time: 03/08/2023 0840 Previous diagnosis: Severe, Obstructive Sleep Apnea-Hypopnea Syndrome AHI: 47.9 (in 2021) Reason for follow up: three month (F/U) Equipment type: CPAP (RESMED Airsense 11, s/u 05/2021) Equipment obtained from: Other ([facility]; getting supplies) Mask style: Full face Backup mask available: Yes (old mask) Last cushion change: not in last 3 months Prior sleep studies: No Year and Where: 04/2021 [facility] HPI additional information: LILIA GARDNER was diagnosed to have severe, AHI 47.9, obstructive sleep apnea-hy popnea syndrome and returns via video appointment today for CPAP therapy three month follow-up. Sleep Study - Results Prior sleep studies: No Year and Where: 04/2021 [facility] CPAP Compliance Data - Data Reviewed with Patient Average duration of nightly device use: 4 hours 13 minutes Compliance rate %: 8 ( days used) Current pressure setting (cmH2O): 7-10 Average residual AHI: 1.6 Central apnea: 0.1 Obstructive apnea: 0.1 Average large leak: 2.8 L/min Subjective Missed days of use due to: reports: illness (bad cough) Patient concerns: denies: aerophagia, mask discomfort, air blowing in eyes, mask leak noise, condensation in mask/hose, nasal congestion, dry mouth, nose, throat, epistaxis Observed to snore while using device: No Current pressure setting perceived as: comfortable On therapy, patient: reports: sleeping better, awakening more refreshed. denies: drowsiness while driving Initial [place] Sleepiness Scale score: 3 (2021) Current [place] Sleepiness Scale score: 8 (03/08/23) Allergies and Home Medications Known drug allergies: No Drug allergies reviewed: Yes Home medication list reviewed: Yes (no changes) Allergy and home medication list: Allergies No Known Drug Allergies Allergy (Verified 03/07/23 08:58) Home Medications No Known Home Medications 03/07/23 [History Confirmed 12/12/23] Review of Systems Review of systems same as previous: No (LUNG ISSUES) Physical Exam Vital signs obtained and entered by: TERESE Webb MA Blood Pressure: 126/79 (PER PT) Cuff size: regular Height: 5 ft 10 in (PER PT) Weight: 250 lb (PER PT) Body Mass Index: 35.9 BMI Classification: Obese Impression and Plan 1. Obstructive Sleep Apnea-Hypopnea Syndrome, severe, with poor treatment compliance and good apnea control. On CPAP therapy, the patient has better sleep quality and is more rested overall. He has had a bad cough that is improving with medications. It has been difficult to wear his mask with coughing at night. 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 He will try to use the CPAP as soon as he is able and we will followup with him in 3 months to recheck compliance. Patient's apnea severity and rationale for treatment to reduce apnea, improve sleep quality and reduce cardiovascular and cerebrovascular events was reviewed. I also reviewed the benefit of consistent device use of CPAP for hypertension. 2. Obesity, unspecified. Currently patients BMI is 35.9. Obesity increases the risk of apnea, CPAP pressure requirements and overall health risks especially cardiovascular and diabetes. Thus patient is advised to lose weight. * Continue auto CPAP pressure at 7-10 cmH2O * Notify me if snoring with mask or feeling that the pressure is too much or too little * Attempt to lose weight * Call this office if any problems using CPAP * Return for follow up in 3 months, or sooner if concerns arise Counseling Topics: Spare mask, Weight loss health impact Follow up with Sleep Care in: 3 months Visit Type: Telehealth Video Video Type: [place] Patient Location: Home Location of Provider: Office Patient agrees and consents to this telehealth visit type: Yes Patient agrees to have their insurance billed: Yes Time Spent with Patient (minutes): 20 Provider Statement: I spent 100% of the Telehealth Video Call with the patient with greater than 50% spent counseling the patient and coordination of care.
[2023-03-08 09:09] VITALS: BP 126/79
== END 2023-03-08 09:04 | disposition home or self-care (01) ==
LOC: SC 09:03
PROVIDERS: ATTEND Nurse Practitioner Family
DX: G47.33 Obstructive sleep apnea (adult) (pediatric) (principal); E66.9 Obesity, unspecified; Z68.35 Body mass index [BMI] 35.0-35.9, adult

== ENCOUNTER 2023-04-01 09:21 | Outpatient (CLI) | payer MEDICARE ==
[2023-04-01 19:02] LABS: BASOPHILS # (AUTO) 0.1 10^3/uL (0.0-0.1); BASOPHILS % (AUTO) 1.2 %; EOSINOPHILS # (AUTO) 0.3 10^3/uL (0.0-0.7); EOSINOPHILS % (AUTO) 5.2 %; HCT - HEMATOCRIT 45.8 % (42.0-52.0); HGB - HEMOGLOBIN 14.3 g/dL (14.0-18.0); LYMPHOCYTES # (AUTO) 1.6 10^3/uL (1.5-3.5); MEAN CORPUSCULAR HEMOGLOBIN 31.4 pg (27.0-31.0); MEAN CORPUSCULAR HGB CONC 31.2 g/dL (32.0-36.0); MEAN CORPUSCULAR VOLUME 100.4 fL (80.0-94.0); MEAN PLATELET VOLUME 12.2 fL (7.4-11.4); MONOCYTES # (AUTO) 0.7 10^3/uL (0.0-1.0); MONOCYTES % (AUTO) 12.8 %; NEUTROPHILS # (AUTO) 2.6 10^3/uL (1.5-6.6); NEUTROPHILS % (AUTO) 50.2 %; PLT - PLATELET COUNT 162 10^3/uL (130-450); RED BLOOD COUNT 4.56 10^6/uL (4.70-6.10); RED CELL DISTRIBUTION WIDTH 13.3 % (12.0-15.0); WHITE BLOOD COUNT 5.2 x10^3/uL (4.8-10.8)
[2023-04-01 19:30] LABS: ALBUMIN 3.9 g/dL (3.2-5.5); ALBUMIN/GLOBULIN RATIO 1.2 (1.0-2.2); ALKALINE PHOSPHATASE 66 IU/L (42-121); ALT ALANINE AMINOTRANSFERASE 22 IU/L (10-60); AST ASPARTATE AMINOTRANSFERASE 25 IU/L (10-42); BILIRUBIN,TOTAL 0.4 mg/dL (0.2-1.0); BUN - BLOOD UREA NITROGEN 17 mg/dL (6-20); CALCIUM 9.4 mg/dL (8.5-10.3); CARBON DIOXIDE - CO2 30 mmol/L (21-32); CHLORIDE 104 mmol/L (101-111); CHOL/HDL RATIO 3.5 (<5.0); CHOLESTEROL 232 mg/dL; CREATININE 0.8 mg/dL (0.6-1.3); GFR - MDRD 97 (>89); GLUCOSE 130 mg/dL (74-104); HDL CHOLESTEROL 66 mg/dL; LDL CHOLESTEROL,CALCULATED 146 mg/dL; LDL/HDL RATIO 2.2 (<3.6); POTASSIUM 4.6 mmol/L (3.5-4.5); SODIUM 141 mmol/L (135-145); TOTAL PROTEIN 7.2 g/dL (6.4-8.9); TRIGLYCERIDES 99 mg/dL (48-352); VLDL CHOLESTEROL 20 mg/dL
[2023-04-01 19:42] LABS: THYROID STIMULATING HORMONE 1.15 uIU/mL (0.34-5.60)
== END 2023-04-01 09:22 | disposition home or self-care (01) ==
LOC: LAB.N 09:21
PROVIDERS: ATTEND Registered Nurse
DX: I10 Essential (primary) hypertension (principal); Z13.228 Encounter for screening for other metabolic disorders; Z13.220 Encounter for screening for lipoid disorders; R97.20 Elevated prostate specific antigen [PSA]; Z13.29 Encounter for screening for other suspected endocrine disorder; Z13.0 Encounter for screening for diseases of the blood and blood-forming organs and certain disorders involving the immune mechanism
CPT/HCPCS: 36415; 80053; 80061; 83721; 84153; 84154; 84443; 85025

== ENCOUNTER 2023-05-13 07:02 | Outpatient (CLI) | payer MEDICARE ==
--- NOTE | 2023-05-13 13:25 | Ultrasound Report ---
PROCEDURE: Aorta Screening INDICATIONS: HIST OF SMOKING TECHNIQUE: Real time scanning was performed of the aorta and iliac arteries, with image documentatio n. COMPARISON: None. FINDINGS: Aorta: Proximal aortic diameter measures 3.0 cm. Mid-aorta measures 2.2 cm. Distal aortic diameter is 1.9 cm. Iliac arteries: Right common iliac artery measures 1.3 cm. Left common iliac artery measures 1.3 cm . IMPRESSION: Abdominal aortic aneurysm. 3 year sonographic follow-up recommended. Recommended intervals for follow-up imaging of ectatic aortas and abdominal aortic aneurysms, per ACR consensus guidelines: 2.5-2.9 cm: 5 years 3.0-3.4 cm: 3 years 3.5-3.9 cm: 2 years 4.0-4.4 cm: 1 year 4.5-4.9 cm: 6 months + endovascular referral 5.0-5.5 cm: 3-6 months + endovascular referral Reviewed by: Yesica Kerns MD on 05/13/2023 1:24 PM PST Approved by: Yesica Kerns MD on 05/13/2023 1:24 PM PST Station ID: [id number]
== END 2023-05-13 07:03 | disposition home or self-care (01) ==
LOC: DI 07:02
PROVIDERS: ATTEND Registered Nurse
DX: Z13.6 Encounter for screening for cardiovascular disorders (principal); Z87.891 Personal history of nicotine dependence; I71.40 Abdominal aortic aneurysm, without rupture, unspecified

== ENCOUNTER 2023-06-06 09:12 | Outpatient (CLI) | payer MEDICARE ==
--- NOTE | 2023-06-06 09:08 | SLEEP CARE CONSULTATION ---
Information from patient questionnaire entered by Terese Perez. I have reviewed and concur with the information entered by Terese Perez. This document represents the service I personally performed and the decisions made by me, Tamanna Fisher ARNP. History of Present Illness Service Date and Time: 06/06/2023 0840 Previous diagnosis: Severe, Obstructive Sleep Apnea-Hypopnea Syndrome AHI: 47.9 (in 2021) Reason for follow up: three month (F/U) Equipment type: CPAP (RESMED Airsense 11, s/u 05/2021) Equipment obtained from: Other ([facility]; getting supplies) Mask style: Full face Prior sleep studies: No Year and Where: 04/2021 [facility] HPI additional information: LILIA GARDNER was diagnosed to have severe, AHI 47.9, obstructive sleep apnea- hypopnea syndrome and returns via video appointment today for CPAP therapy three month follow-up. Sleep Study - Results Prior sleep studies: No Year and Where: 04/2021 [facility] CPAP Compliance Data - Data Reviewed with Patient Average duration of nightly device use: 4 hours 13 minutes Compliance rate %: 4 (14/180 days used; 0% in last 90 days) Current pressure setting (cmH2O): 7-10 Average residual AHI: 1.6 Average large leak: 2.8 L/min Subjective Missed days of use due to: reports: other (requires effort to wear to sleep; interrupting sleep multiple times a night) Patient concerns: reports: mask discomfort, air blowing in eyes, mask leak noise, other (not been using; same issues; seems to bother him more than help him). denies: aerophagia, condensation in mask/hose, nasal congestion, dry mouth, nose, throat, epistaxis Observed to snore while using device: No Current pressure setting perceived as: comfortable On therapy, patient: reports: other Initial Rock Sleepiness Scale score: 3 (2021) Current Rock Sleepiness Scale score: 2 Allergies and Home Medications Known drug allergies: No Drug allergies reviewed: Yes Home medication list reviewed: Yes (no changes) Allergy and home medication list: Allergies No Known Drug Allergies Allergy (Verified 06/02/23 10:41) Review of Systems Review of systems same as previous: Yes (PSA level up) Physical Exam Vital signs obtained and entered by: TAMANNA BRICE Height: 5 ft 10 in Weight: 260 lb Body Mass Index: 37.3 BMI Classification: Obese Impression and Plan 1. Obstructive Sleep Apnea-Hypopnea Syndrome, severe, with poor treatment compliance and good apnea control. Patient has not been using his CPAP because he feels it interrupts the quality of his sleep. He feels like he is having more interrupted sleep because he has to deal with the holes. The mask seems to be comfortable enough and he has no problem with the pressures. I discussed other options including surgical options, inspire implant and oral appliance. He thinks he would like to use the oral appliance. I explained to him that an oral appliance can only control sleep apnea to a certain degree and is better than no treatment at all. He would like to try this to control his sleep apnea as much as possible when unable to use his CPAP. I will write a prescription for the oral appliance and send him the information in the mail. He is to call to make followup appointment after he obtains his oral appliance. I advised him to continue to try to use the CPAP but if unable to at least elevate his head to reduce apneas. He voiced understanding. Patient's apnea severity and rationale for treatment to reduce apnea, improve sleep quality and reduce cardiovascular and cerebrovascular events was reviewed. I also reviewed the benefit of consistent device use of CPAP for hypertension. 2. Obesity, unspecified. Currently patients BMI is 37.3. Obesity increases the risk of apnea, CPAP pressure requirements and overall health risks especially cardiovascular and diabetes. Thus patient is advised to lose weight. * Continue auto CPAP pressure at 7-10 cmH2O * Oral appliance * Notify me if snoring with mask or feeling that the pressure is too much or too little * Attempt to lose weight * Call this office if any problems using CPAP * Return for follow up one month after obtaining oral appliance, or sooner if concerns arise Counseling Topics: Sleeping position, Weight loss health impact Prescriptions: Other (Oral appliance) Follow up with Sleep Care in: other (once has oral appliance) Visit Type: Telehealth Video Video Type: Doximity Patient Location: Home Location of Provider: Office Patient agrees and consents to this telehealth visit type: Yes Time Spent with Patient (minutes): 23 Provider Statement: I spent 100% of the Telehealth Video Call with the patient with greater than 50% spent counseling the patient and coordination of care.
== END 2023-06-06 09:13 | disposition home or self-care (01) ==
LOC: SC 09:12
PROVIDERS: ATTEND Nurse Practitioner Family
DX: G47.33 Obstructive sleep apnea (adult) (pediatric) (principal); E66.9 Obesity, unspecified; Z68.37 Body mass index [BMI] 37.0-37.9, adult

== ENCOUNTER 2023-06-07 14:15 | Outpatient (CLI) | payer MEDICARE ==
[2023-06-07 20:08] LABS: BASOPHILS # (AUTO) 0.1 10^3/uL (0.0-0.1); BASOPHILS % (AUTO) 1.1 %; EOSINOPHILS # (AUTO) 0.1 10^3/uL (0.0-0.7); EOSINOPHILS % (AUTO) 1.2 %; HCT - HEMATOCRIT 49.6 % (42.0-52.0); HGB - HEMOGLOBIN 16.4 g/dL (14.0-18.0); LYMPHOCYTES # (AUTO) 1.1 10^3/uL (1.5-3.5); LYMPHOCYTES % (AUTO) 13.7 %; MEAN CORPUSCULAR HEMOGLOBIN 32.3 pg (27.0-31.0); MEAN CORPUSCULAR HGB CONC 33.1 g/dL (32.0-36.0); MEAN CORPUSCULAR VOLUME 97.6 fL (80.0-94.0); MEAN PLATELET VOLUME 11.1 fL (7.4-11.4); MONOCYTES # (AUTO) 1.2 10^3/uL (0.0-1.0); NEUTROPHILS # (AUTO) 5.6 10^3/uL (1.5-6.6); NEUTROPHILS % (AUTO) 68.6 %; PLT - PLATELET COUNT 176 10^3/uL (130-450); RED BLOOD COUNT 5.08 10^6/uL (4.70-6.10); RED CELL DISTRIBUTION WIDTH 14.3 % (12.0-15.0); WHITE BLOOD COUNT 8.2 x10^3/uL (4.8-10.8)
[2023-06-07 20:11] LABS: ALBUMIN 4.6 g/dL (3.2-5.5); ALBUMIN/GLOBULIN RATIO 1.4 (1.0-2.2); BILIRUBIN,TOTAL 1.2 mg/dL (0.2-1.0); CALCIUM 10.3 mg/dL (8.5-10.3); CREATININE 1.1 mg/dL (0.6-1.3); POTASSIUM 4.2 mmol/L (3.5-4.5)
[2023-06-07 23:06] LABS: ESTIMATED AVERAGE GLUCOSE 108 mg/dL (70-100); HEMOGLOBIN A1c% 5.4 % (4.27-6.07)
== END 2023-06-07 14:16 | disposition home or self-care (01) ==
LOC: LAB.S 14:15
PROVIDERS: ATTEND Physician Assistant Medical
DX: R10.13 Epigastric pain (principal); R63.4 Abnormal weight loss; R11.2 Nausea with vomiting, unspecified
CPT/HCPCS: 36415; 80053; 82150; 83036; 83690; 85025

== ENCOUNTER 2023-06-23 10:42 | Outpatient (CLI) | payer MEDICARE ==
[2023-06-23] MEDS ORDERED: DIATRIZOATE MEGLU/DIATRIZO SOD 30 ML BOTTLE PO ONE (11:07)
[2023-06-23] MEDS ORDERED: iohexoL-300 100 ML VIAL ONE (11:07)
--- NOTE | 2023-06-23 17:05 | CT Report ---
PROCEDURE: Abdomen/Pelvis W INDICATIONS: ABD PAIN CONTRAST: 100ml omni 300 TECHNIQUE: After the administration of intravenous contrast, a CT scan of the abdomen and pelvis was performed. Images were recorded and evaluated at appropriate window settings. Reformats: coronal and sagittal. F or radiation dose reduction, the following was used: automated exposure control, adjustment of mA and /or kV according to patient size. COMPARISON: 07/30/2021 FINDINGS: Image quality: Diagnostic Lower chest: Mild focal nodularity in the left base, possibly infectious/inflammatory, attention on o ptional follow-up if the patient is considered high risk for malignancy. No pleural effusions or dens e airspace disease. Other areas of scattered scarring and atelectasis. Heart size is within normal li mits. Liver: Suspected steatosis Gallbladder and biliary system: Unremarkable, nondilated Pancreas: No ductal dilation Spleen: Nonenlarged Adrenals: No discrete soft tissue nodule. Possible right adrenal myelolipoma Kidneys: No hydronephrosis. No solid mass Vessels and lymph nodes: The main portal vein is patent. No abdominal aortic aneurysm. No pathologic lymph nodes by size criteria. Bowel and peritoneum: No evidence of small bowel obstruction. No pathologic ascites. There are coloni c diverticula. No evidence of acute diverticular inflammation, however consider correlation with age- appropriate colonoscopy results of clinically indicated. The appendix is nondilated. Body wall: Unremarkable. Tiny fat-containing umbilical hernia Pelvis: Penile reservoir. Bladder is unremarkable. The prostate is not well evaluated on this study, however there is focal enhancement in the right posterior medial mid gland peripheral zone (2/135). Bones: Degenerative changes, particular at the right hip. Small sclerotic bone lesions are indetermin ate and may represent bone islands. There are degenerative changes. Nonacute right rib fractures. IMPRESSION: No acute abdominopelvic abnormality. Focal enhancement in right posterior medial mid gland peripheral zone of the prostate. Correlate with PSA and possible MRI. Other findings as above. Reviewed by: Cuco Miller MD on 06/23/2023 5:04 PM PDT Approved by: Cuco Miller MD on 06/23/2023 5:04 PM PDT Station ID: [id number]
[2023-06-23] MEDS: iohexoL-300 100 ML VIAL IVP ONE (18:16)
[2023-06-23] MEDS: DIATRIZOATE MEGLU/DIATRIZO SOD 30 ML BOTTLE PO ONE (18:17)
== END 2023-06-23 10:43 | disposition home or self-care (01) ==
LOC: DI 10:42
PROVIDERS: ATTEND Physician Assistant Medical
DX: R10.13 Epigastric pain (principal); R93.89 Abnormal findings on diagnostic imaging of other specified body structures; R11.2 Nausea with vomiting, unspecified; R63.4 Abnormal weight loss
CPT/HCPCS: 74177; Q9963; Q9967

== ENCOUNTER 2023-07-01 09:22 | Outpatient (CLI) | payer MEDICARE ==
[2023-07-01 18:42] LABS: BASOPHILS # (AUTO) 0.1 10^3/uL (0.0-0.1); EOSINOPHILS # (AUTO) 0.3 10^3/uL (0.0-0.7); EOSINOPHILS % (AUTO) 5.4 %; HCT - HEMATOCRIT 44.6 % (42.0-52.0); HGB - HEMOGLOBIN 14.5 g/dL (14.0-18.0); LYMPHOCYTES # (AUTO) 1.1 10^3/uL (1.5-3.5); LYMPHOCYTES % (AUTO) 21.5 %; MEAN CORPUSCULAR HEMOGLOBIN 32.4 pg (27.0-31.0); MEAN CORPUSCULAR HGB CONC 32.5 g/dL (32.0-36.0); MEAN CORPUSCULAR VOLUME 99.8 fL (80.0-94.0); MEAN PLATELET VOLUME 11.7 fL (7.4-11.4); MONOCYTES # (AUTO) 0.7 10^3/uL (0.0-1.0); MONOCYTES % (AUTO) 12.5 %; NEUTROPHILS # (AUTO) 3.1 10^3/uL (1.5-6.6); NEUTROPHILS % (AUTO) 59.2 %; PLT - PLATELET COUNT 181 10^3/uL (130-450); RED BLOOD COUNT 4.47 10^6/uL (4.70-6.10); RED CELL DISTRIBUTION WIDTH 13.9 % (12.0-15.0); WHITE BLOOD COUNT 5.2 x10^3/uL (4.8-10.8)
[2023-07-01 19:11] LABS: ALBUMIN/GLOBULIN RATIO 1.2 (1.0-2.2); BILIRUBIN,DIRECT 0.18 mg/dL (0.03-0.18); BILIRUBIN,TOTAL 0.6 mg/dL (0.2-1.0); CREATININE 0.7 mg/dL (0.6-1.3); POTASSIUM 4.2 mmol/L (3.5-4.5); TOTAL PROTEIN 7.4 g/dL (6.4-8.9)
[2023-07-01 21:23] LABS: ESTIMATED AVERAGE GLUCOSE 111 mg/dL (70-100); HEMOGLOBIN A1c% 5.5 % (4.27-6.07)
== END 2023-07-01 09:23 | disposition home or self-care (01) ==
LOC: LAB.N 09:22
PROVIDERS: ATTEND Registered Nurse
DX: R63.4 Abnormal weight loss (principal); R11.2 Nausea with vomiting, unspecified; R10.13 Epigastric pain; R94.5 Abnormal results of liver function studies
CPT/HCPCS: 36415; 80053; 80076; 82150; 82248; 83036; 83690; 85025

== ENCOUNTER 2023-07-04 09:00 | Outpatient (CLI) | payer MEDICARE, MEDICAID ==
--- NOTE | 2023-07-04 14:58 | XRAY Report ---
PROCEDURE: Hip 2 View RT INDICATIONS: RIGHT HIP PAIN TECHNIQUE: An AP view the pelvis and AP and frog-leg lateral view(s) of the right hip were acquired. COMPARISON: 01/11/2022. FINDINGS: Bones: No fractures or dislocations. No suspicious bony lesions. Progressive severe degenerative a rthritis involving the right hip with severe diffuse joint space loss which is progressive and superi or lateral joint space obliteration. There is osteophytosis. The visualized pelvic ring appears intac t. There is progressive mild to moderate degenerative arthritis of the left hip. Soft tissues: No suspicious soft tissue calcifications or masses. IMPRESSION: Progressive severe degenerative arthritis of the right hip. Reviewed by: David Sykes MD on 07/04/2023 2:57 PM PDT Approved by: David Sykes MD on 07/04/2023 2:57 PM PDT Station ID: [id number]
== END 2023-07-04 23:59 | disposition home or self-care (01) ==
LOC: DI.WOS 09:00
PROVIDERS: ATTEND Orthopaedic Surgery
DX: M16.11 Unilateral primary osteoarthritis, right hip (principal)

== ENCOUNTER 2023-07-10 11:21 | Day surgery (SDC) | payer MEDICARE, MEDICAID ==
[2023-07-10] MEDS: LACTATED RINGERS 1,000 ML IV ONE ×2 (11:23→12:27)
[2023-07-10] MEDS ORDERED: LIDOCAINE-MPF 1% 30 ML VIAL ONE (11:56)
--- NOTE | 2023-07-10 11:56 | ANESTHESIA ---
Pre-Anesthesia VS, & Labs - Diagnosis elevated PSA - Procedure TRUS biopsy Height: 5 ft 9 in Weight (kg): 121.8 kg Body Mass Index: 39.6 BMI Classification: Obese - NPO >8 hours Home Medications and Allergies Home Medications: Ambulatory Orders Losartan Potassium 100 mg PO DAILY 07/03/23 Losartan Potassium 100 mg PO DAILY 07/03/23 Allergies/Adverse Reactions: Allergies Allergy/AdvReac Type Severity Reaction Status Date / Time No Known Drug Allergies Allergy Verified 06/02/23 10:41 Anes History & Medical History - Anesthetic History Anesthesia Complications: reports: No previous complications - Medical History Cardiovascular: reports: Hypertension, Other Pulmonary: reports: Sleep apnea, CPAP use Gastrointestinal: reports: None Urinary: reports: Benign prostate hypertrophy Musculoskeletal: reports: Osteoarthritis, Chronic back pain, Other Endocrine/Autoimmune: reports: None Skin: reports: None Smoking Status: Never smoker Psychosocial: reports: Alcohol (2 a day) - Surgical History General: reports: Colonoscopy Urologic: reports: Penile implant Gynecologic: Exam General: Alert, Oriented x3 Dental: WNL Mouth Opening: Greater than 4 Fingerbreadths Neck Mobility: Normal Mallampati classification: II Thyromental Distance: greater than 6 cm Respiratory: Lungs clear Cardiovascular: Regular rate Plan Anesthesia Type: Total IV Consent for Procedure(s) Verified and Reviewed: Yes Code Status: Attempt Resuscitation ASA classification: 2-Mild systemic disease Is this case an emergency?: No
[2023-07-10] MEDS ORDERED: fentaNYL 100 MCG/2 ML VIAL ONE (12:04)
[2023-07-10] MEDS ORDERED: MIDAZOLAM 2 MG/2 ML VIAL ONE (12:04)
[2023-07-10] MEDS ORDERED: PROPOFOL 200 MG/20 ML VIAL IVP ONE (12:04)
--- NOTE | 2023-07-10 12:29 | Discharge Plan ---
Discharge Plan Problem Reviewed?: Yes Disposition: Home, Self Care Condition: Good Activity Restrictions: No Restrictions Shower Restrictions: No Driving Restrictions: No Instruction Topics: Biopsy Ultrasound Transrectal Additional Instructions or Follow Up instructions: You have a follow-up appoint with Dr. Weems on July 19 at 10:30 AM, please arrive 15 minutes early No Smoking: If you smoke, Please STOP! Call for help. Follow-up with: Reji Weems MD [Provider Admit Priv/Credential] -
[2023-07-10] MEDS: LIDOCAINE 1% 50 ML MDV TOP ONE (12:31)
--- NOTE | 2023-07-10 12:36 | OPERATIVE REPORT ---
Operative Report - General Procedure Date: 07/10/23 Planned Procedure: Transrectal ultrasound-guided prostate biopsy Pre-Op Diagnosis: Elevated PSA Procedure Performed: Transrectal ultrasound-guided prostate biopsy Post Op Diagnosis: Elevated PSA - Procedure Note Primary Surgeon: Dank Anesthesia Provider: ZEYAD Edmondson Anesthesia Technique: MAC Pathology: 12 core prostate biopsies from routine areas Extra core in right mid and extra core in left lateral mid for total of 14 cores Estimated Blood Loss (mL): 0 Findings: PI-RADS 4 lesion in right posterior paracentral peripheral zone mid prostate PI-RADS 5 lesion in left lateral and anterior lateral peripheral zone mid prostate Complications: none - Other Other Information/Narrative: After informed consent was obtained the patient was brought to the OR and laid in the supine position. The patient was then anesthetized per anesthesia protocols and placed in the left lower cubitus position with left side down. A timeout was performed reconfirming the patient, procedure and laterality. A transrectal ultrasound-guided probe was placed per rectum and his prostate was visualized. 5 cc 1% lidocaine was placed at the lateral aspect of the prostate bilaterally. The prostate volume was measured at 35 cc Using 18-gauge biopsy needle we obtained samples of the prostate from the right and left side, the lateral and medial aspects of the base, mid and apex for a total of 12 samples. An extra sample was taken from right mid gland corresponding to the PI-RADS 4 lesion in right posterior paracentral peripheral zone. An extra sample was taken from left lateral mid gland corresponding to the PI-RADS 5 lesion in left lateral and anterior lateral peripheral zone mid prostate. A total of 14 samples were taken. The probe was slowly removed and no bleeding was identified. The patient tolerated procedure well and was brought to the PACU without further incident. He will follow-up in a few weeks time for pathology discussion
[2023-07-10 12:50] VITALS: BP 127/80; O2SAT 97
--- NOTE | 2023-07-10 14:09 | ANESTHESIA POST OP EVALUATION ---
Anesthesia Post Eval - Post Anesthesia Eval Vitals: Last Vital Signs Temp 36 C L 07/10/23 12:27 Pulse 89 07/10/23 12:48 Resp 14 07/10/23 12:48 BP 127/80 07/10/23 12:48 Pulse Ox 97 07/10/23 12:48 O2 Flow Rate CV Function Including HR & BP: Stable Pain Control: Satisfactory Nausea & Vomiting: Negative Mental Status: Baseline Respiratory Status: Airway Patent Hydration Status: Satisfactory Anesthesia Complications: None
== END 2023-07-10 11:22 | disposition home or self-care (01) ==
LOC: SDS 11:21
PROVIDERS: ATTEND Urology
PROC: 0VB07ZX Excision of Prostate, Via Natural or Artificial Opening, Diagnostic (ICD-10-PCS; principal; 2023-07-10 12:45)
DX: C61 Malignant neoplasm of prostate (principal); I10 Essential (primary) hypertension; E66.9 Obesity, unspecified; Z68.39 Body mass index [BMI] 39.0-39.9, adult
CPT/HCPCS: 55700; J7120

== ENCOUNTER 2023-07-14 12:42 | Outpatient (CLI) | payer MEDICARE, MEDICAID ==
--- NOTE | 2023-07-14 15:22 | XRAY Report ---
PROCEDURE: Chest 2V INDICATIONS: COUGH TECHNIQUE: 2 views of the chest were acquired. COMPARISON: None. FINDINGS: Surgical changes and devices: Suggestion of previous right rib fractures. Lungs and pleura: No pleural effusions or pneumothorax. Lungs are clear. Mediastinum: Mediastinal contours appear normal. Heart size is normal. Bones and chest wall: Prior right rib fractures, kyphosis, osteopenia.. IMPRESSION: No acute cardiopulmonary process. Reviewed by: Onel Reyes MD on 07/14/2023 3:20 PM PDT Approved by: Onel Reyes MD on 07/14/2023 3:20 PM PDT Station ID: [id number]
== END 2023-07-14 12:43 | disposition home or self-care (01) ==
LOC: DI 12:42
PROVIDERS: ATTEND Nurse Practitioner
DX: R05.9 Cough, unspecified (principal)

== ENCOUNTER 2023-09-12 14:44 | Outpatient (CLI) | payer MEDICARE, MEDICAID ==
[2023-09-12 18:16] LABS: ALBUMIN 4.2 g/dL (3.2-5.5); BILIRUBIN,DIRECT 0.12 mg/dL (0.03-0.18); BILIRUBIN,TOTAL 0.6 mg/dL (0.2-1.0); TOTAL PROTEIN 7.4 g/dL (6.4-8.9)
== END 2023-09-12 14:45 | disposition home or self-care (01) ==
LOC: LAB.N 14:44
PROVIDERS: ATTEND Student in an Organized Health Care Education/Training Program
DX: R74.8 Abnormal levels of other serum enzymes (principal)
CPT/HCPCS: 36415; 80076

== ENCOUNTER 2023-09-14 10:41 | Outpatient (CLI) | payer MEDICARE, MEDICAID ==
[2023-09-14 15:18] LABS: BASOPHILS # (AUTO) 0.1 10^3/uL (0.0-0.1); EOSINOPHILS # (AUTO) 0.2 10^3/uL (0.0-0.7); EOSINOPHILS % (AUTO) 3.5 %; HCT - HEMATOCRIT 43.6 % (42.0-52.0); HGB - HEMOGLOBIN 14.2 g/dL (14.0-18.0); LYMPHOCYTES # (AUTO) 1.3 10^3/uL (1.5-3.5); LYMPHOCYTES % (AUTO) 20.8 %; MEAN CORPUSCULAR HEMOGLOBIN 32.6 pg (27.0-31.0); MEAN CORPUSCULAR HGB CONC 32.6 g/dL (32.0-36.0); MEAN CORPUSCULAR VOLUME 100.2 fL (80.0-94.0); MEAN PLATELET VOLUME 11.7 fL (7.4-11.4); MONOCYTES # (AUTO) 0.8 10^3/uL (0.0-1.0); MONOCYTES % (AUTO) 12.6 %; NEUTROPHILS # (AUTO) 3.9 10^3/uL (1.5-6.6); NEUTROPHILS % (AUTO) 61.6 %; PLT - PLATELET COUNT 206 10^3/uL (130-450); RED BLOOD COUNT 4.35 10^6/uL (4.70-6.10); RED CELL DISTRIBUTION WIDTH 11.9 % (12.0-15.0); WHITE BLOOD COUNT 6.3 x10^3/uL (4.8-10.8)
[2023-09-14 15:20] LABS: ALBUMIN 4.1 g/dL (3.2-5.5); ALBUMIN/GLOBULIN RATIO 1.3 (1.0-2.2); BILIRUBIN,TOTAL 0.4 mg/dL (0.2-1.0); CREATININE 0.7 mg/dL (0.6-1.3); TOTAL PROTEIN 7.2 g/dL (6.4-8.9)
== END 2023-09-14 10:42 | disposition home or self-care (01) ==
LOC: LAB.S 10:41
PROVIDERS: ATTEND Registered Nurse
DX: Z13.228 Encounter for screening for other metabolic disorders (principal); Z13.0 Encounter for screening for diseases of the blood and blood-forming organs and certain disorders involving the immune mechanism
CPT/HCPCS: 36415; 80053; 85025

== ENCOUNTER 2023-12-14 11:14 | Outpatient (CLI) | payer MEDICARE, MEDICAID | END 2023-12-14 11:15 | disposition home or self-care (01) | LOC: LAB.N 11:14 | PROVIDERS: ATTEND Student in an Organized Health Care Education/Training Program | DX: C61 Malignant neoplasm of prostate (principal) | CPT/HCPCS: 36415; 84153 ==